=== PATIENT | female | born 1990 | race Hispanic/Latino ===

== ENCOUNTER 2017-05-15 17:19 | Emergency (ER) | payer OTHER ==
[2017-05-15 18:22] VITALS: BP 103/67; PULSE 101; RESP 18; TEMP 98.8; O2SAT 99
--- NOTE | 2017-05-15 18:49 | ED PDOC ---
HPI: General Adult Time Seen by Provider: 05/15/17 18:29 Chief Complaint (Nursing): Flu-like Symptoms Chief Complaint (Provider): SOB, flu-like symptoms History Per: Patient Additional Complaint(s): 27-year-old female presents to emergency department with sore throat, cough, body aches and headache ongoing for 2 weeks. Patient was seen today at urgent care and had labs obtained along with rapid strep. She states rapid strep was negative. Patient was not tested for the flu. She states she was sent home with an antibiotic but she is not sure what the name of the antibiotic is. Patient received a call several hours after urgent care visit telling her to go to the nearest emergency room because one of her blood tests that indicates possible clot was elevated. Patient was not told the name of the blood test that was abnormal. On arrival patient has dry cough and slight shortness of breath. She denies any calf swelling or pain. No recent travel. Patient's main complaint upon arrival is throat pain and difficulty swallowing. Patient is tolerating liquids and solids has pain when swallowing, denies any vomiting. Patient states this morning when she was on the train she felt very sick and almost passed out which prompted her urgent care visit today. PMD: none Past Medical History Reviewed: Historical Data, Nursing Documentation, Vital Signs Vital Signs: Last Vital Signs Temp 98.8 F 05/15/17 18:18 Pulse 101 H 05/15/17 18:18 Resp 18 05/15/17 18:18 BP 103/67 05/15/17 18:18 Pulse Ox 99 05/15/17 19:22 - Medical History PMH: No Chronic Diseases - Family History Family History: States: No Known Family Hx - Living Arrangements Living Arrangements: With Friends/Others - Social History Current smoker - smoking cessation education provided: No Alcohol: Social Drugs: Denies - Allergies Allergies/Adverse Reactions: Allergies Allergy/AdvReac Type Severity Reaction Status Date / Time Penicillins Allergy URTICARIA Verified 05/15/17 18:17 Review of Systems ROS Statement: Except As Marked, All Systems Reviewed And Found Negative Constitutional: Positive for: Fever, Chills, Other (body aches) ENT: Positive for: Nose Congestion, Throat Pain, Throat Swelling Cardiovascular: Negative for: Chest Pain Respiratory: Positive for: Cough, Shortness of Breath Gastrointestinal: Negative for: Nausea, Vomiting, Diarrhea Genitourinary Female: Negative for: Dysuria Neurological: Positive for: Headache. Negative for: Dizziness Physical Exam - Reviewed Nursing Documentation Reviewed: Yes Vital Signs Reviewed: Yes - Physical Exam Appears: Positive for: Well, Non-toxic, No Acute Distress Head Exam: Positive for: ATRAUMATIC Skin: Negative for: Rash Eye Exam: Positive for: Normal appearance, EOMI, PERRL ENT: Positive for: TM Is/Are (normal bilaterally), Nasal Congestion, Pharyngeal Erythema, Tonsillar Exudate (Patchy exudates noted to bilateral tonsils) Cardiovascular/Chest: Positive for: Regular Rate, Rhythm Respiratory: Positive for: Normal Breath Sounds. Negative for: Wheezing, Respiratory Distress Gastrointestinal/Abdominal: Positive for: Soft. Negative for: Tenderness, Distended, Guarding, Rebound Back: Negative for: L CVA Tenderness, R CVA Tenderness Extremity: Positive for: Normal ROM. Negative for: Pedal Edema, Calf Tenderness Neurologic/Psych: Positive for: Alert, Oriented - Laboratory Results Result Diagrams: 05/15/17 19:54 - ECG O2 Sat by Pulse Oximetry: 99 Pulse Ox Interpretation: Normal - Other Rad CXR X-Ray: Interpreted by Me, Viewed By Me Medical Decision Making Medical Decision Makin-year-old female with flulike symptoms and abnormal labs, sent from urgent care Plan: test Urine dip CBC CMP Rapid strep and throat culture Monospot Flu swab Chest x-ray IV fluids Oral Tylenol and Motrin CT chest with IV contrast Disposition - Clinical Impression Clinical Impression: Influenza-like symptoms - Patient ED Disposition Is Patient to be Admitted: Transfer of Care - Disposition Disposition: Transfer of Care Disposition Time: 20:08 Condition: STABLE Forms: [employer] ([place]) Patient Signed Over To: Francesca Benavides Handoff Comments: Signed out pending diagnostic testing results and final disposition Results - Lab Results Lab Results: 05/15/17 19:54 WBC 7.4 RBC 4.49 Hgb 13.8 Hct 40.5 MCV 90.1 MCH 30.8 MCHC 34.2 RDW 12.9 Plt Count 197 MPV 7.6 Neut % (Auto) 39.1 L Lymph % (Auto) 50.4 H Mcdonough % (Auto) 9.8 Eos % (Auto) 0.1 Baso % (Auto) 0.6 Neut # (Auto) 2.9 Lymph # (Auto) 3.7 Mcdonough # (Auto) 0.7 Eos # (Auto) 0.0 Baso # (Auto) 0.0
[2017-05-15] MEDS ORDERED: Sodium Chloride 0.9% 1,000 ML IV STA (19:23)
[2017-05-15 19:59] LABS: BASO % 0.6 % (0.0-2.0); EOS % 0.1 % (0.0-4.0); HEMOGLOBIN 13.8 g/dL (12.0-16.0); LYMPH # 3.7 K/uL (1.0-4.3); LYMPH % 50.4 % (20.0-40.0); MEAN CELL VOLUME 90.1 fl (81.0-99.0); MEAN CORPUSCULAR HEMOGLOBIN 30.8 pg (27.0-31.0); MEAN CORPUSCULAR HGB CONC 34.2 g/dL (33.0-37.0); MEAN PLATELET VOLUME 7.6 fl (7.2-11.7); MONO # 0.7 K/uL (0.0-0.8); MONO % 9.8 % (0.0-10.0); NEUT # 2.9 K/uL (1.8-7.0); NEUT % 39.1 % (50.0-75.0); NRBC % 0.4 % (0.0-0.0); RBC 4.49 Mil/uL (3.80-5.20); RED CELL DISTRIBUTION WIDTH 12.9 % (11.5-14.5); WHITE BLOOD COUNT 7.4 K/uL (4.8-10.8)
[2017-05-15 20:14] LABS: ALB/GLOB RATIO 1.1 (1.0-2.1); ALBUMIN 4.6 g/dL (3.5-5.0); ALT/SGPT 265 U/L (9-52); AST/SGOT 205 U/L (14-36); BLOOD UREA NITROGEN 9 mg/dl (7-17); CALCIUM 9.9 mg/dL (8.4-10.2); GFR AFRICAN-AMERICAN > 60; GFR NON-AFRICAN AMERICAN > 60
[2017-05-15 20:31] LABS: INR 1.1 (0.9-1.2); PARTIAL THROMBOPLASTIN TIME 33.1 Seconds (25.6-37.1); PROTHROMBIN TIME 11.9 Seconds (9.8-13.1)
--- NOTE | 2017-05-15 21:28 | ED PDOC ---
- Laboratory Results Result Diagrams: 05/15/17 19:54 05/15/17 19:54 - ECG O2 Sat by Pulse Oximetry: 99 - Progress ED Course And Treament: Case endorsed to medical underwriter from [employer] pending labs, diagnostics EXAM: CT Angiography Chest With Intravenous Contrast CLINICAL HISTORY: 27 years old, female; Signs and symptoms; Shortness of breath; Additional info: SOB TECHNIQUE: Axial computed tomographic angiography images of the chest with intravenous contrast using pulmonary embolism protocol. All CT scans at this facility use one or more dose reduction techniques, viz.: automated exposure control; ma/kV adjustment per patient size (including targeted exams where dose is matched to indication; i.e. head); or iterative reconstruction technique. MIP reconstructed images were created and reviewed. Coronal and sagittal reformatted images were created and reviewed. CONTRAST: 90 mL of [id number] administered intravenously. COMPARISON: No relevant prior studies available. FINDINGS: Pulmonary arteries: Unremarkable. No pulmonary embolism. Aorta: No acute findings. No thoracic aortic aneurysm. Lungs: Unremarkable. No mass. No consolidation. Pleural space: Unremarkable. No significant effusion. No pneumothorax. Heart: Unremarkable. No cardiomegaly. No significant pericardial effusion. No evidence of RV dysfunction. Bones/joints: No acute fracture. No dislocation. Soft tissues: Unremarkable. Lymph nodes: Mildly prominent nonspecific axillary lymph nodes. IMPRESSION: No acute intrathoracic findings. No pulmonary embolism. Patient educted on findings, discharged with rx Ibuprofen. Advised fluids, rest. Follow up PMD 2-3 days. Return precautions given. Disposition - Clinical Impression Clinical Impression: Mononucleosis - POA Present On Arrival: None - Disposition Referrals: [facility] [Outside] Disposition: Routine/Home Disposition Time: 23:35 Condition: STABLE Prescriptions: Ibuprofen [Motrin Tab] 1 tab PO Q6 PRN #20 tab PRN Reason: Pain, Moderate (4-7) Instructions: Mononucleosis (ED) Forms: [employer] ([place]), [employer] ED School/Work Excuse
[2017-05-15] MEDS ORDERED: Sodium Chloride 0.9% 50 ML IV ONE (21:33)
[2017-05-15] MEDS ORDERED: Iodixanol 320 MG/ML 100 ML BOTTLE IV ONE (21:33)
--- NOTE | 2017-05-16 08:49 | CT ---
PROCEDURE: CT Chest with contrast (Pulmonary Angiogram) HISTORY: sob COMPARISON: None available. TECHNIQUE: Axial computed tomography images were obtained of the chest in the pulmonary arterial phase of enhancement. Coronal and sagittal reformatted images were created and reviewed. Intravenous contrast dose: 90 mL Visipaque 320 Radiation dose: Total exam DLP = 353 mGy-cm. This CT exam was performed using one or more of the following dose reduction techniques: Automated exposure control, adjustment of the mA and/or kV according to patient size, and/or use of iterative reconstruction technique. FINDINGS: PULMONARY ARTERIES: Unremarkable. No pulmonary embolism. AORTA: No acute findings. No thoracic aortic aneurysm. LUNGS: Unremarkable. No nodule, mass or pulmonary consolidation. PLEURAL SPACES: Unremarkable. No effusion or pneuomothorax. HEART: Unremarkable. No cardiomegaly. No significant pericardial effusion. LYMPH NODES: No lymphadenopathy. BONES, CHEST WALL: Unremarkable. No fracture or destructive lesion OTHER FINDINGS: Unremarkable. IMPRESSION: Unremarkable CT pulmonary angiogram. No pulmonary embolus. Comments: Preliminary report per [facility] compatible with this report.
--- NOTE | 2017-05-16 10:20 | RAD ---
HISTORY: Cough COMPARISON: No prior. FINDINGS: LUNGS: The lungs are well inflated and clear. PLEURA: No significant pleural effusion identified, no pneumothorax apparent. CARDIOVASCULAR: Normal. OSSEOUS STRUCTURES: No significant abnormalities. VISUALIZED UPPER ABDOMEN: Normal. OTHER FINDINGS: None. IMPRESSION: No active pulmonary disease.
--- NOTE | 2017-05-16 14:11 | CARD ---
APPROVED REPORT EKG Measurement Heart [id number] [id number] <Conclusion> Normal sinus rhythm with sinus arrhythmia Normal ECG
== END 2017-05-16 00:15 | disposition home or self-care (01) ==
LOC: H.ER 17:19
DX: B27.90 Infectious mononucleosis, unspecified without complication (principal)
CPT/HCPCS: 71045; 71275; 80053; 81025; 84484; 85025; 85610; 85730; 86308; 87430; 87804; 93005; 99284; J7040; Q9967